=== PATIENT | female | born 1945 | race Caucasian/White ===

== ENCOUNTER → 2018-10-04 | Outpatient (CLI) | payer MEDICARE, OTHER, SELFPAY ==
[2018-10-04 15:32] VITALS: BMI 39.7
[2018-10-05 00:17] LABS: Absolute Lymphocyte Count 4.97 X10^3/ul (0.83-4.51); Absolute Neutrophil Count 4.3 X10^3/uL (2.0-7.7); Basophil# 0.05 X10^3/uL; Basophil% 0.5 % (0-1); Eosinophils% 0.9 % (0-5); Hematocrit 41.5 % (37-47); Hemoglobin 13.2 g/dl (12.0-15.0); Lymphocyte # 4.97 X10^3/ul (4.0); Lymphocyte % 47.2 % (19-41); Mean Corp Hgb Conc 31.8 g/gl (32-36); Mean Corpuscular Hgb 28.9 pg (27.0-32.0); Mean Corpuscular Volume 90.8 fL (81-99); Mean Platelet Vol. 12.4 fl (6.2-12.0); Monocyte# 1.08 X10^3/uL; Monocyte% 10.2 % (0-10); Neutrophil # 4.32 X10^3/uL (2.7-7.7); Platelet Count 246 K/mm3 (150-450); RBC Distribution Width CV 13.9 % (11.6-14.6); RBC Distribution Width SD 46.1 fl (35.1-43.9); Red Blood Count 4.57 M/mm3 (4.2-5.4); White Blood Count 10.5 K/mm3 (4.4-11.0)
[2018-10-05 00:26] LABS: POSITIVE COUNT NO; POSITIVE DIFFERENTIAL NO; POSITIVE MORPHOLOGY NO
[2018-10-05 00:39] LABS: ALB/GLOB Ratio 1.1 RATIO (0.9-2.4); AST(SGOT) 25 U/L (15-37); Alanine Aminotransfer ALT/SGPT 26 U/L (13-56); Albumin, Serum 3.9 g/dL (3.2-5.0); Alkaline Phosphatase 92 U/L (45-117); Anion Gap 6 (5-15); BUN 17 mg/dL (7-18); BUN/Creat Ratio 17.9 RATIO (10-20); Calcium,Total 8.6 mg/dL (8.5-10.1); Chloride 107 mmol/L (98-107); Cholesterol 231 mg/dL (200); Creatinine, Serum 0.95 mg/dL (0.55-1.02); EST Glomerular Filtration Rate 61 mL/min (>60); Est Glom Filt Rate - Afr Amer 74 mL/min (>60); Globulin 3.5 g/dL (2.2-4.2); Glucose 98 mg/dL (74-106); High Density Lipoprotein 50 mg/dL; Protein, Total 7.4 g/dL (6.4-8.2); Sodium Level 138 mmol/L (136-145); Triglycerides 135 mg/dL; Very Low Density Lipoprotein 27 mg/dL (5-40)
== END | disposition home or self-care (01) ==
PROVIDERS: Referring Provider Nurse Practitioner; Visit Provider Nurse Practitioner
DX: I10 Essential (primary) hypertension (principal)
CPT/HCPCS: 80053; 80061; 85025

== ENCOUNTER → 2020-05-12 | Outpatient (CLI) | payer MEDICARE, OTHER, SELFPAY ==
[2020-05-12 14:55] VITALS: BMI 40.6
[2020-05-12 22:25] LABS: Absolute Lymphocyte Count 6.01 X10^3/uL (0.83-4.51); Absolute Neutrophil Count 4.4 X10^3/uL (2.0-7.7); Basophil# 0.08 X10^3/uL; Basophil% 0.7 % (0-1); Eosinophil# 0.18 X10^3/uL; Eosinophils% 1.6 % (0-5); Hematocrit 44.3 % (37-47); Hemoglobin 13.6 g/dL (12.0-15.0); Lymphocyte # 6.01 X10^3/ul (4.0); Lymphocyte % 52.4 % (19-41); Mean Corp Hgb Conc 30.7 g/dL (32-36); Mean Corpuscular Hgb 28.9 pg (27.0-32.0); Mean Corpuscular Volume 94.3 fL (81-99); Mean Platelet Vol. 12.5 fl (6.2-12.0); Monocyte# 0.76 X10^3/uL; Monocyte% 6.6 % (0-10); NRBC Flagged by Analyzer 0 % (0-5); Neutrophil # 4.44 X10^3/uL (2.7-7.7); Neutrophil % 38.6 % (47-70); POSITIVE DIFFERENTIAL YES; Platelet Count 210 K/mm3 (150-450); RBC Distribution Width CV 13.4 % (11.6-14.6); RBC Distribution Width SD 46.8 fl (35.1-43.9); White Blood Count 11.5 K/mm3 (4.4-11.0)
[2020-05-12 22:30] LABS: Differential Indicated SCAN CRITERIA MET
[2020-05-12 22:32] LABS: AST(SGOT) 23 U/L (15-37); Alanine Aminotransfer ALT/SGPT 35 U/L (13-56); Alkaline Phosphatase 108 U/L (45-117); Anion Gap 7 (5-15); BUN 17 mg/dL (7-18); BUN/Creat Ratio 17.7 RATIO (10-20); Calcium,Total 9.1 mg/dL (8.5-10.1); Chloride 107 mmol/L (98-107); Cholesterol 258 mg/dL (200); Creatinine, Serum 0.96 mg/dL (0.55-1.02); EST Glomerular Filtration Rate 60 mL/min (>60); Est Glom Filt Rate - Afr Amer 72 mL/min (>60); Globulin 3.9 g/dL (2.2-4.2); Glucose 89 mg/dL (74-106); High Density Lipoprotein 52 mg/dL; Potassium 3.9 mmol/L (3.5-5.1); Protein, Total 7.9 g/dL (6.4-8.2); Sodium Level 139 mmol/L (136-145); Thyroid Stim Hormone (TSH) 4.32 uIU/mL (0.358-3.74); Triglycerides 135 mg/dL; Very Low Density Lipoprotein 27 mg/dL (5-40)
[2020-05-12 23:06] LABS: Differential Comment SCANNED
== END | disposition home or self-care (01) ==
PROVIDERS: Referring Provider Nurse Practitioner; Visit Provider Nurse Practitioner
DX: I10 Essential (primary) hypertension (principal); K21.9 Gastro-esophageal reflux disease without esophagitis
CPT/HCPCS: 80053; 80061; 84443; 85025

== ENCOUNTER → 2020-06-30 | Outpatient (CLI) | payer MEDICARE, OTHER, SELFPAY ==
[2020-06-30 15:09] VITALS: BMI 40.4
[2020-06-30 22:30] LABS: Thyroid Stim Hormone (TSH) 0.11 uIU/mL (0.358-3.74)
== END | disposition home or self-care (01) ==
PROVIDERS: Visit Provider Nurse Practitioner
DX: R60.0 Localized edema (principal)
CPT/HCPCS: 84443

== ENCOUNTER → 2021-02-01 | Outpatient (CLI) | payer MEDICARE, OTHER, SELFPAY | END | disposition home or self-care (01) | PROVIDERS: Visit Provider Nurse Practitioner | DX: R50.9 Fever, unspecified (principal) | CPT/HCPCS: 87086 ==

== ENCOUNTER → 2021-02-22 | Outpatient (CLI) | payer MEDICARE, OTHER, SELFPAY ==
[2021-02-22 21:19] LABS: Basophil# 0.08 X10^3/uL; Basophil% 0.8 % (0-1); Eosinophil# 0.09 X10^3/uL; Eosinophils% 0.9 % (0-5); Hematocrit 41.4 % (37-47); Hemoglobin 12.9 g/dL (12.0-15.0); Lymphocyte % 49.1 % (19-41); Mean Corp Hgb Conc 31.2 g/dL (32-36); Mean Corpuscular Hgb 30.1 pg (27.0-32.0); Mean Corpuscular Volume 96.5 fL (81-99); Mean Platelet Vol. 13.1 fl (6.2-12.0); Monocyte# 1.12 X10^3/uL; Monocyte% 10.8 % (0-10); NRBC Flagged by Analyzer 0 % (0-5); Neutrophil # 3.98 X10^3/uL (2.7-7.7); Neutrophil % 38.2 % (47-70); POSITIVE DIFFERENTIAL YES; POSITIVE MORPHOLOGY YES; Platelet Count 245 K/mm3 (150-450); RBC Distribution Width CV 13.6 % (11.6-14.6); RBC Distribution Width SD 48.4 fl (35.1-43.9); Red Blood Count 4.29 M/mm3 (4.2-5.4); White Blood Count 10.4 K/mm3 (4.4-11.0)
[2021-02-22 21:23] LABS: Differential Indicated SCAN CRITERIA MET
[2021-02-22 21:30] LABS: ALB/GLOB Ratio 0.9 RATIO (0.9-2.4); AST(SGOT) 98 U/L (15-37); Alanine Aminotransfer ALT/SGPT 145 U/L (13-56); Albumin, Serum 3.5 g/dL (3.2-5.0); Alkaline Phosphatase 179 U/L (45-117); Anion Gap 5 (5-15); BUN 11 mg/dL (7-18); BUN/Creat Ratio 11.6 RATIO (10-20); Calcium,Total 9.1 mg/dL (8.5-10.1); Chloride 109 mmol/L (98-107); Creatinine, Serum 0.95 mg/dL (0.55-1.02); EST Glomerular Filtration Rate 61 mL/min (>60); Est Glom Filt Rate - Afr Amer 74 mL/min (>60); Globulin 3.9 g/dL (2.2-4.2); Glucose 119 mg/dL (74-106); Potassium 4.3 mmol/L (3.5-5.1); Protein, Total 7.4 g/dL (6.4-8.2); Sodium Level 141 mmol/L (136-145)
[2021-02-22 21:51] LABS: Differential Comment SCANNED
== END | disposition home or self-care (01) ==
PROVIDERS: PCP Nurse Practitioner; Visit Provider Nurse Practitioner
DX: I10 Essential (primary) hypertension (principal); K21.9 Gastro-esophageal reflux disease without esophagitis; R74.8 Abnormal levels of other serum enzymes
CPT/HCPCS: 80053; 85025

== ENCOUNTER → 2021-03-30 | Outpatient (CLI) | payer MEDICARE, OTHER, SELFPAY ==
[2021-03-30 22:48] LABS: ALB/GLOB Ratio 1.1 RATIO (0.9-2.4); AST(SGOT) 23 U/L (15-37); Alanine Aminotransfer ALT/SGPT 32 U/L (13-56); Alkaline Phosphatase 94 U/L (45-117); Anion Gap 7 (5-15); BUN 12 mg/dL (7-18); BUN/Creat Ratio 12.4 RATIO (10-20); Calcium,Total 9.1 mg/dL (8.5-10.1); Chloride 104 mmol/L (98-107); Creatinine, Serum 0.97 mg/dL (0.55-1.02); EST Glomerular Filtration Rate 59 mL/min (>60); Est Glom Filt Rate - Afr Amer 72 mL/min (>60); Globulin 3.8 g/dL (2.2-4.2); Glucose 94 mg/dL (74-106); Potassium 3.7 mmol/L (3.5-5.1); Protein, Total 7.8 g/dL (6.4-8.2); Sodium Level 140 mmol/L (136-145)
[2021-04-02 12:09] LABS: Vitamin D 1,25-Dihydroxy 44.5 pg/mL (19.9-79.3)
[2021-04-02 13:09] LABS: ANTINUCLEAR ANTIBODIES DIRECT Negative (Negative)
== END | disposition home or self-care (01) ==
PROVIDERS: Visit Provider Nurse Practitioner
DX: R74.8 Abnormal levels of other serum enzymes (principal); M19.90 Unspecified osteoarthritis, unspecified site; E55.9 Vitamin D deficiency, unspecified
CPT/HCPCS: 80053; 82652; 86038; 86225; 86235

== ENCOUNTER 2021-06-18 14:26 | Outpatient (CLI) | payer MEDICARE, OTHER, SELFPAY ==
[2021-06-18 22:23] LABS: Absolute Lymphocyte Count 7.06 X10^3/uL (0.83-4.51); Absolute Neutrophil Count 4.7 X10^3/uL (2.0-7.7); Basophil# 0.09 X10^3/uL; Basophil% 0.7 % (0-1); Eosinophil# 0.13 X10^3/uL; Hematocrit 42.1 % (37-47); Hemoglobin 13.8 g/dL (12.0-15.0); Lymphocyte # 7.06 X10^3/ul (0.83-4.51); Lymphocyte % 55.2 % (19-41); Mean Corp Hgb Conc 32.8 g/dL (32-36); Mean Corpuscular Hgb 30.1 pg (27.0-32.0); Mean Corpuscular Volume 91.7 fL (81-99); Mean Platelet Vol. 12.5 fl (6.2-12.0); Monocyte# 0.79 X10^3/uL; Monocyte% 6.2 % (0-10); NRBC Flagged by Analyzer 0 % (0-5); Neutrophil # 4.69 X10^3/uL (2.7-7.7); Neutrophil % 36.7 % (47-70); POSITIVE DIFFERENTIAL YES; Platelet Count 237 K/mm3 (150-450); RBC Distribution Width CV 13.2 % (11.6-14.6); RBC Distribution Width SD 45.1 fl (35.1-43.9); Red Blood Count 4.59 M/mm3 (4.2-5.4); White Blood Count 12.8 K/mm3 (4.4-11.0)
[2021-06-18 22:32] LABS: Differential Indicated SCAN CRITERIA MET
[2021-06-18 22:45] LABS: ALB/GLOB Ratio 1.1 RATIO (0.9-2.4); AST(SGOT) 24 U/L (15-37); Alanine Aminotransfer ALT/SGPT 62 U/L (13-56); Albumin, Serum 4.1 g/dL (3.2-5.0); Alkaline Phosphatase 96 U/L (45-117); Anion Gap 6 (5-15); BUN 14 mg/dL (7-18); BUN/Creat Ratio 15.5 RATIO (10-20); CRP, High Sensitivity Cardiac 1.69 mg/L; Calcium,Total 9.1 mg/dL (8.5-10.1); Chloride 108 mmol/L (98-107); Cholesterol 258 mg/dL (200); EST Glomerular Filtration Rate 64 mL/min (>60); Est Glom Filt Rate - Afr Amer 78 mL/min (>60); Globulin 3.8 g/dL (2.2-4.2); Glucose 95 mg/dL (74-106); High Density Lipoprotein 54 mg/dL; Potassium 4.1 mmol/L (3.5-5.1); Protein, Total 7.9 g/dL (6.4-8.2); Sodium Level 138 mmol/L (136-145); Thyroid Stim Hormone (TSH) 5.12 uIU/mL (0.358-3.74); Triglycerides 131 mg/dL; Very Low Density Lipoprotein 26 mg/dL (5-40)
[2021-06-18 23:01] LABS: Differential Comment SCANNED
== END 2021-06-18 23:59 | disposition home or self-care (01) ==
LOC: LABSPEC 08-31 14:26
PROVIDERS: Visit Provider Nurse Practitioner
DX: I10 Essential (primary) hypertension (principal)
CPT/HCPCS: 80053; 80061; 84443; 85025; 86141

== ENCOUNTER → 2022-01-10 | Outpatient (CLI) | payer MEDICARE, OTHER, SELFPAY | END | disposition home or self-care (01) | DX: N30.00 Acute cystitis without hematuria (principal) | CPT/HCPCS: 87077; 87086; 87088; 87186 ==

== ENCOUNTER → 2022-06-27 | Outpatient (CLI) | payer MEDICARE, OTHER, SELFPAY ==
[2022-06-27 21:39] LABS: Absolute Lymphocyte Count 5.39 X10^3/uL (0.83-4.51); Absolute Neutrophil Count 7.1 X10^3/uL (2.0-7.7); Basophil# 0.09 X10^3/uL; Basophil% 0.7 % (0-1); Eosinophil# 0.15 X10^3/uL; Eosinophils% 1.1 % (0-5); Hematocrit 42.8 % (37-47); Hemoglobin 13.5 g/dL (12.0-15.0); Lymphocyte # 5.39 X10^3/ul (0.83-4.51); Lymphocyte % 39.2 % (19-41); Mean Corp Hgb Conc 31.5 g/dL (32-36); Mean Corpuscular Hgb 30.3 pg (27.0-32.0); Monocyte# 1.04 X10^3/uL; Monocyte% 7.6 % (0-10); NRBC Flagged by Analyzer 0 % (0-5); Neutrophil # 7.05 X10^3/uL (2.7-7.7); Neutrophil % 51.3 % (47-70); POSITIVE DIFFERENTIAL YES; POSITIVE MORPHOLOGY YES; Platelet Count 206 K/mm3 (150-450); RBC Distribution Width CV 13.5 % (11.6-14.6); RBC Distribution Width SD 47.9 fl (35.1-43.9); Red Blood Count 4.46 M/mm3 (4.2-5.4); White Blood Count 13.7 K/mm3 (4.4-11.0)
[2022-06-27 21:50] LABS: Differential Indicated SCAN CRITERIA MET
[2022-06-27 22:38] LABS: Atypical Lymphocyte 1+ %; Differential Comment SCANNED
== END | disposition home or self-care (01) ==
PROVIDERS: Visit Provider Nurse Practitioner
DX: I10 Essential (primary) hypertension (principal); E03.9 Hypothyroidism, unspecified; K21.00 Gastro-esophageal reflux disease with esophagitis, without bleeding
CPT/HCPCS: 85025

== ENCOUNTER → 2023-07-11 | Outpatient (CLI) | payer MEDICARE, OTHER, SELFPAY ==
--- OUTSIDE RECORDS SUMMARY | 2023-07-11 20:44 | XMS RPT_ITS | CCD ---
Author Name Unknown Address [address] [place] [address] [address] [place] [address] Organization [facility] Care Team Providers Care Completion Engineer Name Role Phone Vital, Dora Primary Care Provider Allergies Allergy Classification Reported Allergen(s) Allergy Type Date of Onset Reaction(s) Facility (1 source) Acetaminophen Drug Allergy 8 Nausea And Vomiting [facility] (1 source) apple allergenic extract Drug Allergy 8 [facility] (1 source) Cat Hair Extract Drug Allergy 8 [facility] (4 sources) Ciprofloxacin Drug Allergy 8 Nausea And Vomiting, Nausea Only, GI Upset [facility] (1 source) Lisinopril Drug Allergy 9 Other (See Comments) [facility] (1 source) MITE EXTRACT Drug Allergy 8 [facility] (1 source) Sulfonamides (Antibiotic) Propensity to adverse reactions to drug 9 Nausea And Vomiting [facility] (1 source) tomato allergenic extract Drug Allergy 8 Hives [facility] (1 source) Peanut-Containing Drug Products Propensity to adverse reactions to drug 8 Hives [facility] (1 source) Cephalexin Drug Allergy 2 Intolerance [facility] (1 source) Sulfonamides (Antibiotic) Drug Allergy 9 GI Upset [facility] Medications Current Medications Medication Drug Class(es) Dates Sig (Normalized) Sig (Original) ursodiol 300 mg oral capsule (1 source) Bile Acid Start: 12-23-2021 End: 06-21-2022 take 1 capsule by mouth three times daily ursodiol (ACTIGALL) 300 mg capsule Take 1 capsule by mouth three times daily. 270 capsule 1 12/23/2021 06/21/2022 Active Completed/Discontinued Medications Medication Drug Class(es) Dates Sig (Normalized) Sig (Original) aluminum hydroxide 40 mg/ml / magnesium hydroxide 40 mg/ml / simethicone 4 mg/ml oral suspension (1 source) Start: 01-30-2021 End: 01-30-2021 aluminum & magnesium hydroxide-simeth icone (MAALOX) 200-200-20 MG/5ML suspension 30 mL amLODIPine 2.5 mg oral tablet (4 sources) Dihydropyridine Calcium Channel [place] take 1 tablet by mouth once daily amLODIPine (NORVASC) 2.5 mg tablet Take 2.5 mg by mouth once daily. 0 Active Problems Active Problems Problem Classification Problem Date Documented Da te Episodic/Chronic Esophageal disorders (1 source) Esophagitis; Translations: [Esophagitis] Episodic Essential hypertension (3 sources) Essential hypertension; Translations: [Essential (primary) hypertension] Onset: 02-06-2021 02-06-2021 Chronic Nonspecific chest pain (1 source) Chest pain; Translations: [Other chest pain] Episodic Other nutritional; endocrine; and metabolic disorders (1 source) Obese class II; Translations: [Obesity, unspecified] Onset: 2021 2021 Chronic Pancreatic disorders (not diabetes) (1 source) Gallstone acute pancreatitis; Translations: [Biliary acute pancreatitis without necrosis or infection] Onset: 2021 12-18-2021 Episodic Thyroid disorders (3 sources) Acquired hypothyroidism; Translations: [Hypothyroidism, unspecified] Onset: 02-06-2021 02-06-2021 Chronic Past or Other Problems Problem Classification Problem Date Documented Date Episodic/Chronic Abdominal pain (3 sources) Epigastric pain; Translations: [Epigastric pain] Onset: 02-06-2021 02-06-2021 Episodic Biliary tract disease (6 sources) Common bile duct calculus; Translations: [Calculus of bile duct without cholangitis or cholecystitis without obstruction] Onset: 02-06-2021 02-06-2021 Episodic Other liver diseases (3 sources) Enzyme level - finding; Translations: [Transaminitis] Onset: 02-06-2021 02-06-2021 Episodic Urinary tract infections (3 sources) Acute urinary tract infection; Translations: [Urinary tract infection, site not specified] Onset: 02-06-2021 02-06-2021 Episodic Results Test Name Value Interpretation Reference Range Facil ity Vital Signs Date Time Vital Sign Value Performing Clinician Faci lity 01-30-2021 16:28-0400 Diastolic blood pressure 102 mm[Hg] Kameron Solomon MD Work Phone: [facility] Work Phone: 01-30-2021 16:28-0400 Heart rate 78 /min Kameron Solomon MD Work Phone: [facility] Work Phone: 01-30-2021 16:28-0400 Respiratory rate 22 /min Kameron Solomon MD Work Phone: [facility] Work Phone: 01-30-2021 16:28-0400 SaO2% (BldA) [Mass fraction] 85 % Kameron Solomon MD Work Phone: [facility] Work Phone: 01-30-2021 16:28-0400 Systolic blood pressure 128 mm[Hg] Kameron Solomon MD Work Phone: [facility] Work Phone: 01-30-2021 11:49-0400 Body height 149.9 cm Kameron Solomon MD Work Phone: [facility] Work Phone: 01-30-2021 11:49-0400 Body mass index (BMI) [Ratio] 34.34 kg/m2 Kameron Solomon MD Work Phone: [facility] Work Phone: 01-30-2021 11:49-0400 Body temperature 98.91 [degF] Kameron Solomon MD Work Phone: [facility] Work Phone: 01-30-2021 11:49-0400 Body weight 77.11 kg Kameron Solomon MD Work Phone: [facility] Work Phone: Encounters Encounter Date Encounter Type Care Provider Facility Start: 07-27-2022 Telephone encounter Kinsey cruz APRN.[employer]UAL[employer]ATION ARCHITECT Work Phone: NOC Procedures Date Procedure Procedure Detail Performing Clinician Start: 02-09-2021 Antibody screen Plan of Treatment Date Care Activity Detail Author Start: 12-23-2024 DIABETES SCREEN DIABETES SCREEN [facility] Start: 02-11-2024 DIABETES SCREEN DIABETES SCREEN [facility] Start: 02-03-2022 Influenza vaccination [facility] Start: 06-05-2021 ADVANCE DIRECTIVE DISCUSSION ADVANCE DIRECTIVE DISCUSSION [facility] Start: 02-03-2021 COVID-19 VACCINE (3 - Booster for Pfizer series) COVID-19 VACCINE (3 - Booster for Pfizer series) [facility] Start: 02-03-2021 Influenza vaccination Flu vaccine (#1) [facility] Work Phone: Start: 12-16-2008 Pneumococcal 65+ years Vaccine (1 of 1 - PPSV23) Pneumococcal 65+ years Vaccine (1 of 1 - PPSV23) [facility] Work Phone: Start: 12-16-2008 PNEUMOCOCCAL: 65+ (1 - PCV) PNEUMOCOCCAL: 65+ (1 - PCV) [facility] Start: 12-16-1998 Screening for osteoporosis DEXA (modify frequency per FRAX score) [facility] Work Phone: Start: 12-16-1993 Shingles Vaccine (1 of 2) Shingles Vaccine (1 of 2) [facility] Work Phone: Start: 12-16-1993 SHINGRIX VACCINE (1 of 2) SHINGRIX VACCINE (1 of 2) [facility] Start: 12-16-1962 DTaP/Tdap/Td vaccine (1 - Tdap) DTaP/Tdap/Td vaccine (1 - Tdap) [facility] Work Phone: Start: 12-16-1962 Urine microalbumin profile DTAP,TDAP,TD (1 - Tdap) [facility] Start: 12-16-1961 ANNUAL PCP TEAM CHRONIC DISEASE VISIT ANNUAL PCP TEAM CHRONIC DISEASE VISIT [facility] Start: 12-16-1961 BP CONTROLLED (<130/80) BP CONTROLLED (<130/80) [facility] Start: 1955 Adult depression screening assessment DEPRESSION SCREENING [facility] Start: 1955 COVID-19 Vaccine (1) COVID-19 Vaccine (1) [facility] Work Phone: Start: 1943 Hepatitis C screening Hepatitis C screen [facility] Work Phone: EKG 12 Lead [facility] Work Phone: Payers Date Payer Category Payer Unknown MMO MMO MEDICARE SUPPLEMENT [id number] 2019-Present [phone] [address] [place] [address] Indemnity [id number] 2008 Medicare MEDICARE MEDICAR E A AND B [id number] 2008-Present [phone] [address] [address] [place] [address] Medicare [id number] Social History Date Type Detail Facility Start: 01-30-2021 End: 02-05-2021 Tobacco smoking status NHIS Never smoker [facility] Start: 01-30-2021 End: 02-05-2021 Tobacco use and exposure Never used [facility] Start: 01-30-2021 Alcohol intake Lifetime non-d robe (finding) [employer] Work Phone: Start: 01-30-2021 End: 12-19-2021 History SDOH Alcohol Frequency 1 [employer] Work Phone: Start: 1945 Sex Assigned At Not on file [facility] Work Phone: Start: 10-16-2021 End: 12-22-2021 Exposure to SARS-CoV-2 (event) Not sure [facility] Start: 02-10-2021 End: 12-22-2021 Alcohol intake Ex-drinker (finding) [facility] Start: 12-19-2021 History SDOH Financial 5 [facility] Start: 12-19-2021 History SDOH Transpo rt Med 2 [facility] Clinical Notes 01-30-2021 to 12-23-2021 Note Date & Type Note Facility 12-23-2021 Note HNO ID: [id number] Author: Taylor Artis RN Service: Care Management Author Type: Registered Nurse Type: Care Mgt Initial Assessment Filed: 12/23/2021 2:43 PM Note Text: CARE MANAGEMENT: ASSESSMENT AND DISCHARGE PLAN SERVICE DATE: December 23, 2021 SERVICE TIME: 2:36 PM PRIMARY CARE PHYSICIAN: Kinsey Vital APRN.[facility] Primary Contact: Extended Emergency Contact Information Primary Emergency Contact: VIKI ANAYA Address: [address] [place] [id number] Relation: Daughter Secondary Emergency Contact: Derick Wild Mobile Relation: Son ADMISSION STATUS: Inpatient Insurance Provider: MEDICARE A AND B NEEDS PRIOR TO DISCHARGE Needs Prior to Discharge: To Be Determined POTENTIAL TRANSITION PLANS Home Based on clinical judgement, Care Management will address the following needs: Medical Patient's perception of need for this admission: less pain ADVANCE DIRECTIVES Current Advance Directive: Health Care Power of Pain Medicine Physician In Chart: No MS/BEHAVIOR Baseline Mental Status Prior to this Illness what was the patient's Baseline Mental Status?: Alert AND Oriented Prior to this illness, has anyone described the patient having any of the following behaviors?: Not Applicable Relationship of the informant to the patient:: Self READMISSION Last Discharge Date: 12/21/21 Is this Within the Past 30 days? From what level of care did patient present?: Home Last discharge within 30 days: No PATIENT SCREEN Patient/Transport Nurse Stated Goals: To have reduction in pain;To have reduction in symptoms;To improve my functional status;To return home to life as it was Under the care of a PCP?: Yes, External Provider Provider Name: Kinsey Horton Last Known Visit: last month Does the patient have transportation upon discharge?: Yes Situation: family Use of any community resources?: No Does the patient have a stable and supportive living arrangement and home setting?: Yes Situation: lives at home alone one level home Are there any potential risks or gaps identified by risk/functional/fall,etc. scores in the EMR?: No Any potential risks related to substance abuse and/or behavioral health?: No Based on clinical judgement, Care Management will address the following needs: Medical CAREGIVER ASSESSMENT Caregiver is ready, willing and able to meet the patient's needs as recommended by the inter-professional team:: No Patient's transition needs and plan for meeting these needs: tbd MEDICAL Medical Needs: Two or more chronic diseases;Obesity;Durable Medical Equipment Health Issues Impacting Discharge Plan: Newly diagnosed Newly Diagnosed: choledocholithiasis Medication Adherance I am convinced of the importance of my prescription medication: 0 - Agree Completely I worry that my prescription medication will do more harm than good to me : 0 - Disagree Completely I feel financially burdened by my [id number] expenses for my prescription medication:: 0 - Disagree Completely Risk Score: 0 Patient is categorized as: Low risk < 2 No medical discharge barriers identified at this time. No social discharge barriers identified at this time. No behavioral/cognitive discharge barriers identified at this time. No functional discharge barriers identified at this time. FREEDOM OF CHOICE EXPLAINED: Are you interested in bedside delivery of your medications? No ASSESSMENT AND PLAN: Spoke to patient at bedside. Pt is from home alone, daughter lives next door, not active with any agencies, +PCP, +DME, +PCP (BHARGAVI Donald) pt is independent [employer]. Pt had ERCP yesterday 12/22. Anticipate home at discharge. Family to transport at d/c. to follow clinical progress. SIGNATURE: Taylor Artis RN PATIENT NAME: Lizzy Wild DATE: December 23, 2021 TIME: 2:36 PM CONTACT #: [id number] [facility] 12-23-2021 Note HNO ID: [id number] Author: Vane Lau DO Service: General Surgery Author Type: Resident Type: Progress Notes Filed: 12/23/2021 7:29 AM Note Text: -- Attestation signed by Lainey Perez MD at 12/23/2021 4:45 PM I saw and evaluated the patient. Discussed with the resident and agree with resident's findings and plan as documented in the resident's note. No c/o No pain or nausea LFTs- higher: T bili 2.0 WBC 9.3 A/P choledocholithiasis- S/p ERCP with stone removal on 12-22-21 Cont diet as tolerated OK for discharge Follow LFTs as outpatient- should normalize without intervention H Naveed Perez MD -- MEDICAL STUDENT Elect[facility] General Surgery ([facility]) Progress Note This note was generated by a medical student working under the supervision of a resident and attending physician. When co-signed, the physical exam findings, assessment, and plan as written below are are considered accurate. SERVICE DATE: 12/23/2021 [facility] Surgery (Green Surgery) Service Pager: For questions or concerns Mon-Fri 6a-5p please page [phone]. After 5pm and on Weekends and Holidays, please page [phone] if in ICU or [phone] if on RNF. SUBJECTIVE: Pt doing well this morning after the procedure Complains of a mildly sore throat but otherwise feels much better No N/V/D Had a BM and passing flatus Tolerating clears Ambulating w/o assistance . Denies fevers, chills, CP, SOB, headache, cough, muscle weakness, numbness, urinary difficulty, or any other complaints this AM. Tolerating diet DIET LIQUID Nausea No Emesis No Flatus Yes Bowel movement Yes Pain Controlled Yes Ambulating Yes OBJECTIVE: Vitals: Temp (24hrs), Av.3 ?C (97.4 ?F), Min:36 ?C (96.8 ?F), Max:36.8 ?C (98.2 ?F) BP 149/67 Pulse 60 Temp 36.7 ?C (98.1 ?F) (Oral) Resp 18 Ht 149.9 cm (4' 11 ) Wt 87 kg (191 lb 12.8 oz) SpO2 96% BMI 38.74 kg/m? O2 Therapy: Room Air IANDO: Date 12/22/21 0700 - 12/23/21 0659 12/23/21 07 - 12/24/21 0659 Shift 1517-3854 2539-9135 2435-6355 24 Hour Total 2249-6337 2350-9423 8803-7782 24 Hour Total INTAKE PO 240 240 PO 240 240 IV 500 500 Volume (mL) (lactated ringers iv infusion) 500 500 Shift Total 500 240 740 OUTPUT Urine 200 200 Void (ml) 200 200 Urine Not Saved. 1 x 1 x 2 x Shift Total 200 200 Weight (kg) 87 87 87 87 87 87 87 87 MEDICATIONS Current Facility-Administered Medications Medication Dose Route Frequency - lactated ringers iv infusion 75 mL/hr INTRAVENOUS CONTINUOUS - fentaNYL 50 mcg/mL 25 mcg injection (SUBLIMAZE) 25 mcg INTRAVENOUS q 5 MIN PRN - ondansetron (PF) 4 mg injection (ZOFRAN) 4 mg INTRAVENOUS PRN - metoprolol succinate ER 50 mg tab(s) (TOPROL XL) 50 mg ORAL DAILY - amLODIPine 2.5 mg tab(s) (NORVASC) 2.5 mg ORAL DAILY - pantoprazole DR 40 mg tab(s) (PROTONIX) 40 mg ORAL BID AC (06/1599) - polyethylene glycol 3350 17 g packet (MIRALAX, GLYCOLAX) 17 g ORAL DAILY PRN - sodium chloride 0.9 % (flush) 3-5 mL (BD POSIFLUSH) 3-5 mL INTRAVENOUS q 12 H - NaCl 0.9% iv flush bag 20 mL INTRAVENOUS PRN - enoxaparin 40 mg injection (LOVENOX) 40 mg SUBCUTANEOUS DAILY - acetaminophen 650 mg tab(s) (TYLENOL) 650 mg ORAL q 6 H - levothyroxine 100 mcg tab(s) (SYNTHROID) 100 mcg ORAL DAILY (6 AM) Labs: Recent Labs 12/23/21 0412 12/22/21 0625 NA 142 140 K 3.1* 3.0* CHLOR 105 103 CO2 22 19* BUN 5* 6* CREAT 0.68 0.65 GLUC 90 76 ANION 15 18 CA 9.2 9.1 ALB 3.6* 4.1 AST 164* 37* ALT 151* 111* ALKPHOS 229* 177* TBILI 2.0* 0.6 WBC 9.30 8.93 HB 13.9 14.2 HCT 43.1 43.6 PLT 203 206 Exam: GENERAL: resting comfortably, in no acute distress HEENT: normocephalic, atraumatic, EOMI NECK: trachea midline, no JVD LUNGS: Unlabored breathing, equal chest rise bilaterally CARDIAC: Regular rate and rhythm as above ABDOMEN: Soft, non-tender, non-distended, no masses or organomegaly EXTREMITIES: FIELDS, No deformities, No edema SKIN: Skin color, texture, turgor normal, No rashes or lesions NEURO: AANDOx3, CN II-XII grossly intact PSYCH: normal mood and affect ASSESSMENT AND PLAN: Active Hospital Problems Diagnosis Date Noted - Choledocholithiasis 02/06/2021 Assessment: 76 year old female?with a past medical history of hypothyroidism and hypertension, and past surgical history of appendectomy, cholecystectomy, total abdominal hysterectomy, oophorectomy, ventral and inguinal hernia repairs with mesh presents as a direct admission for choledocholithiasis seen on MRCP. Underwent ERCP with stone removal, but not stent placement on 12/22/21. Hospital Course: 12/21: MRI shows CBD 12mm stone indicating choledocholithiasis 12/22: underwent ERCP with sphincterotomy with removal of stones, no stent Plan: POD1 SP ERCP with sphincteroto (more content not included)... [facility] 12-22-2021 Note HNO ID: [id number] Author: Jamari Boles MD Service: General Surgery Author Type: Resident Type: Progress Notes Filed: 12/22/2021 6:26 PM Note Text: -- Attestation signed by Aimee Santacruz MD at 12/23/2021 2:10 PM I saw and evaluated the patient. Discussed with the resident and agree with resident's findings and plan as documented in the resident's note. December 23, 2021 Aimee Santacruz MD 2:10 PM Plan of care discussed with: Provider, RN, Patient. -- [facility] ([facility]) Progress Note SERVICE DATE: December 22, 2021 Elect[facility] General Surgery ([facility]) Service Pager: For questions or concerns Mon-Mon 6a-5p please page [phone]. After 5pm and on Weekends and Holidays, please page [phone] if in ICU or [phone] if on RNF. Subjective SUBJECTIVE: Complains of persistent epigastric pain. Tolerating diet DIET LIQUID Nausea No Emesis No Flatus Yes Bowel movement Yes Pain Controlled Yes Ambulating Yes Objective OBJECTIVE: Vitals: Temp (24hrs), Av.4 ?C (97.5 ?F), Min:36 ?C (96.8 ?F), Max:37.1 ?C (98.8 ?F) BP 142/76 Pulse 91 Temp 36.4 ?C (97.6 ?F) (Axillary) Resp 20 Ht 149.9 cm (4' 11 ) Wt 87 kg (191 lb 12.8 oz) SpO2 95% BMI 38.74 kg/m? O2 Therapy: Room Air IANDO: Date 12/21/21 1500 - 12/22/21 0659 12/22/21 0700 - 12/23/21 0659 Shift 3683-9743 3643-6220 24 Hour Total 3247-7615 5971-1980 8760-7217 24 Hour Total INTAKE IV 500 500 Volume (mL) (lactated ringers iv infusion) 500 500 Shift Total 500 500 OUTPUT Urine 200 200 Void (ml) 200 200 Shift Total 200 200 Weight (kg) 87 87 87 87 87 87 MEDICATIONS Current Facility-Administered Medications Medication Dose Route Frequency - lactated ringers iv infusion 125 mL/hr INTRAVENOUS CONTINUOUS - fentaNYL 50 mcg/mL 25 mcg injection (SUBLIMAZE) 25 mcg INTRAVENOUS q 5 MIN PRN - ondansetron (PF) 4 mg injection (ZOFRAN) 4 mg INTRAVENOUS PRN - metoprolol succinate ER 50 mg tab(s) (TOPROL XL) 50 mg ORAL DAILY - amLODIPine 2.5 mg tab(s) (NORVASC) 2.5 mg ORAL DAILY - pantoprazole DR 40 mg tab(s) (PROTONIX) 40 mg ORAL BID AC (0600/1600) - polyethylene glycol 3350 17 g packet (MIRALAX, GLYCOLAX) 17 g ORAL DAILY PRN - sodium chloride 0.9 % (flush) 3-5 mL (BD POSIFLUSH) 3-5 mL INTRAVENOUS q 12 H - NaCl 0.9% iv flush bag 20 mL INTRAVENOUS PRN - NaCl 0.9% iv infusion 100 mL/hr INTRAVENOUS CONTINUOUS - enoxaparin 40 mg injection (LOVENOX) 40 mg SUBCUTANEOUS DAILY - acetaminophen 650 mg tab(s) (TYLENOL) 650 mg ORAL q 6 H - levothyroxine 100 mcg tab(s) (SYNTHROID) 100 mcg ORAL DAILY (6 AM) Labs: Recent Labs 12/22/21 0625 12/21/21 0835 NA 140 141 K 3.0* 3.9 CHLOR 103 108* CO2 19* 19* BUN 6* 8 CREAT 0.65 0.71 GLUC 76 85 ANION 18 14 CA 9.1 9.2 ALB 4.1 3.8* AST 37* 45* ALT 111* 129* ALKPHOS 177* 180* TBILI 0.6 0.5 WBC 8.93 7.81 HB 14.2 13.1 HCT 43.6 40.4 PLT 206 206 Physical Exam: GENERAL: resting comfortably, in no acute distress HEENT: normocephalic, atraumatic, EOMI NECK: trachea midline, no JVD LUNGS: unlabored breathing, equal chest rise bilaterally CARDIAC: regular rate, warm and well perfused extremities ABDOMEN: soft, tender in epigastric region, non-distended, no rebound or guarding EXTREMITIES: FIELDS, no deformities, no edema SKIN: skin color, texture, turgor normal, no rashes or lesions NEURO: AANDOx3, CN II-XII grossly intact PSYCH: normal mood and affect ASSESSMENT AND PLAN: Assessment Active Hospital Problems Diagnosis Date Noted - Choledocholithiasis 02/06/2021 Assessment: 76 year old female?with a past medical history of hypothyroidism and hypertension, and past surgical history of appendectomy, cholecystectomy, total abdominal hysterectomy, oophorectomy, ventral and inguinal hernia repairs with mesh presents as a direct admission for choledocholithiasis seen on MRCP. Hospital Course/Operations/Procedures: 12/22/2021 Procedure(s): ERCP WITH REMOVAL STONE ERCP WITH SPHINCTEROTOMY INPATIENT ATTENDING: Dr. Lainey Perez MD, Elective High-Risk Geriatric Patient Vulnerabilities: Patient is NOT high risk based on evaluation and assessment Plan: - ERCP with Dr. Perez today for sphincterotomy - 3-4 yellow cholesterol stones removed - Diet: DIET LIQUID, will advance as tolerated - discharge tomorrow if stable - Team members: Surgeon, Resident/FERCHO and Nurse - Recommendations: N/A Geriatrics, cognition/delirium: N/A Palliative care and hospice: N/A Speech AND Nutrition recommendations: N/A Pharmacy Med recommendations: N/A - Anticipated discharge: tomorrow - Rehab AND therapy recommendations: Home Discussed with attending: Dr. Santacruz Follow up needs: none SIGNATURE: Jamari Boles MD PATIENT NAME: Lizzy Wild DATE: December 22, 2021 TIME: 6:18 (more content not included)... [facility] 12-22-2021 Note HNO ID: [id number] Author: Lukas Gonzalez RN Service: ? Author Type: Registered Nurse Type: Nursing Progress Note Filed: 12/22/2021 2:41 PM Note Text: 100 cc's LR infused in PACU [facility] 12-22-2021 Note HNO ID: [id number] Author: Lukas Gonzalez RN Service: ? Author Type: Registered Nurse Type: Nursing Progress Note Filed: 12/22/2021 2:19 PM Note Text: Kd RN and Derick RN cleaned pt of incont urine- [facility] 12-22-2021 Note HNO ID: [id number] Author: Meme Harding APRN.[facility] Service: Nursing Author Type: Nurse Applied Research Director Type: Anesthesia Procedure Notes Filed: 12/22/2021 12:59 PM Note Text: ANESTHESIOLOGY PROCEDURE NOTE PIV General Information Procedure Start Time/Medication Administration: 12/22/2021 12:42 PM Patient Location: OR Staffing Anesthesiologist: Thierno Bartlett DO Performed by: anesthesiologist Preparation Sterility Preparation: hand hygiene performed prior to procedure, surgical cap used, mask used, skin prep agent completely dried prior to procedure Site Prep: Chloraprep Procedure Details Indication: need for IV access Needle Size/Type: 22 gauge angiocath Orientation: Right Location: Forearm Imaging Guidance Used: No SIGNATURE: Meme Harding APRN.CRNA PATIENT NAME: Lizzy Wild DATE: December 22, 2021 TIME: 12:58 PM CSN: [id number] [facility] 12-22-2021 Note HNO ID: [id number] Author: Meme Harding APRN.GRINDER SET UP OPERATOR JIG Service: Nursing Author Type: Nurse Applied Research Director Type: Anesthesia Procedure Notes Filed: 12/22/2021 12:58 PM Note Text: ANESTHESIOLOGY PROCEDURE NOTE Airway General Information Procedure Start Time/Medication Administration: 12/22/2021 12:40 PM Patient location during procedure: OR Patient identity confirmed: arm band and patient Staffing Anesthesiologist: Thierno Bartlett DO GRINDER SET UP OPERATOR JIG: Meme Harding APRN.GRINDER SET UP OPERATOR JIG Performed by: MONTSE Indications and Patient Condition Preoxygenated: yes Patient position: sniffing Difficult Mask: No Indications for airway management: anesthesia and airway protection anesthesia circuit Method: modified rapid sequence Final Airway Details Final airway type: endotracheal airway Final Endotracheal Airway: ETT Cuffed: yes Successful intubation technique: direct laryngoscopy Devices used: intubating stylet Endotracheal tube insertion site: oral Blade: Graciela Blade size: #3 ETT size (mm): 7.0 Measured from: lips Measurement (cm): 20 Placement verified by: chest auscultation and capnometry Cormack-Lehane Classification: grade I - full view of glottis Number of attempts at approach: 1 Airway not difficult SIGNATURE: Meme Harding APRN.GRINDER SET UP OPERATOR JIG PATIENT NAME: Lizzy Wild DATE: December 22, 2021 TIME: 12:57 PM CSN: [id number] [facility] 12-22-2021 Note HNO ID: [id number] Author: Vane Lau DO Service: General Surgery Author Type: Resident Type: Progress Notes Filed: 12/22/2021 8:18 AM Note Text: -- Attestation signed by Lainey Perez MD at 12/22/2021 1:36 PM I saw and evaluated the patient. Discussed with the resident and agree with resident's findings and plan as documented in the resident's note. Lainey Perez MD -- MEDICAL STUDENT Elective General Surgery (Green Surgery) Progress Note This note was generated by a medical student working under the supervision of a resident and attending physician. When co-signed, the physical exam findings, assessment, and plan as written below are are considered accurate. SERVICE DATE: 12/22/2021 Elective General Surgery (Green Surgery) Service Pager: For questions or concerns Mon-Fri 6a-5p please page [phone]. After 5pm and on Weekends and Holidays, please page [phone] if in ICU or [phone] if on RNF. SUBJECTIVE: Patient was seen and examined this morning. Continues to have epigastric pain. She says that it sometimes radiates to her back. Denies any nausea/vomiting. Denies fevers, chills, CP, SOB, headache, cough, muscle weakness, numbness, urinary difficulty, or any other complaints this AM. Tolerating diet DIET NPO Nausea No Emesis No Flatus Yes Bowel movement Yes Pain Controlled Yes Ambulating Yes OBJECTIVE: Vitals: Temp (24hrs), Av.7 ?C (98.1 ?F), Min:36.3 ?C (97.3 ?F), Max:37.1 ?C (98.8 ?F) BP 144/64 Pulse (!) 59 Temp 36.3 ?C (97.3 ?F) (Oral) Resp 20 Ht 149.9 cm (4' 11 ) Wt 87 kg (191 lb 12.8 oz) SpO2 97% BMI 38.74 kg/m? O2 Therapy: Room Air IANDO: MEDICATIONS Current Facility-Administered Medications Medication Dose Route Frequency - metoprolol succinate ER 50 mg tab(s) (TOPROL XL) 50 mg ORAL DAILY - amLODIPine 2.5 mg tab(s) (NORVASC) 2.5 mg ORAL DAILY - pantoprazole DR 40 mg tab(s) (PROTONIX) 40 mg ORAL BID AC (0600/1600) - polyethylene glycol 3350 17 g packet (MIRALAX, GLYCOLAX) 17 g ORAL DAILY PRN - sodium chloride 0.9 % (flush) 3-5 mL (BD POSIFLUSH) 3-5 mL INTRAVENOUS q 12 H - NaCl 0.9% iv flush bag 20 mL INTRAVENOUS PRN - NaCl 0.9% iv infusion 100 mL/hr INTRAVENOUS CONTINUOUS - enoxaparin 40 mg injection (LOVENOX) 40 mg SUBCUTANEOUS DAILY - acetaminophen 650 mg tab(s) (TYLENOL) 650 mg ORAL q 6 H - levothyroxine 100 mcg tab(s) (SYNTHROID) 100 mcg ORAL DAILY (6 AM) Labs: Recent Labs 12/21/21 0835 12/20/21 0544 NA 141 144 K 3.9 3.7 CHLOR 108* 109* CO2 19* 18* BUN 8 10 CREAT 0.71 0.73 GLUC 85 67* ANION 14 17 CA 9.2 9.0 ALB 3.8* 3.6* AST 45* 69* ALT 129* 170* ALKPHOS 180* 193* TBILI 0.5 0.5 WBC 7.81 8.75 HB 13.1 12.5 HCT 40.4 38.5 PLT 206 200 Exam: GENERAL: resting comfortably, in no acute distress HEENT: normocephalic, atraumatic, EOMI NECK: trachea midline, no JVD LUNGS: Unlabored breathing, equal chest rise bilaterally CARDIAC: Regular rate and rhythm as above ABDOMEN: is soft tender to palpation in the epigastric region it is non-distended, no masses or organomegaly EXTREMITIES: FIELDS, No deformities, No edema SKIN: Skin color, texture, turgor normal, No rashes or lesions NEURO: AANDOx3, CN II-XII grossly intact PSYCH: normal mood and affect ASSESSMENT AND PLAN: Active Hospital Problems Diagnosis Date Noted - Choledocholithiasis 02/06/2021 Assessment: 76 year old female?with a past medical history of hypothyroidism and hypertension, and past surgical history of appendectomy, cholecystectomy, total abdominal hysterectomy, oophorectomy, ventral and inguinal hernia repairs with mesh presents as a direct admission for choledocholithiasis. Hospital Course: Plan: - Possible ERCP today 12/22 - continue rest of medical mgmt per primary - Diet: NPO - IVF: NS 100 mL/hr - Pain control: tylenol, oxy PRN - GI PPx: protonix - DVT PPx: LVX, SCDs - Home Medications: synthroid, metoprolol, amlodipine - Encourage ambulation, incentive spirometry - Discussed with resident: Dr Louis DO Follow up needs: TBD SIGNATURE: Oanh Eden MS4 PATIENT NAME: Lizzy Wild DATE: December 22, 2021 TIME: 5:30 AM Pager: see below Elective General Surgery (Green Surgery) Service Pager: For questions or concerns Mon-Fri 6a-5p please page [phone]. After 5pm and on Weekends and Holidays, please page [phone]. TEACHING PHYSICIAN NOTE OF PERSONAL INVOLVEMENT IN CARE: I have personally seen and examined the patient and performed the medical decision-making components. I have reviewed the medical student documentation and verified the findings in the note as written. Any additions or changes are noted in bold/italics. Signature: Vane Lau DO Date: 12/22/2021 Time: 8:18 AM [facility] 12-21-2021 Note HNO ID: [id number] Author: Inessa Zacarias APRN.[facility] Service: Gastroenterology Author Type: Nurse Specialist Type: Plan of Care Filed: 12/21/2021 3:09 PM Note Text: December 21, 2021 3:08 PM GI plan of care Spoke with Dr. Alvarez Salgado at [facility] and he can accept patient there for ERCP with stone removal. Likely will be transferred there later today. Notified LINDSEY Whaley and nursing staff ([facility]). Inessa Zacarias APRN.[facility] 12-20-2021 Note HNO ID: [id number] Author: KIMMIE Newsome Service: Care Management Author Type: Judicial Law Clerk Type: Care Mgt Progress Note Filed: 12/20/2021 3:29 PM Note Text: CARE MANAGEMENT PROGRESS NOTE SERVICE DATE: 12/20/2021 SERVICE TIME: 3:29 PM LOS: 3 days Needs Prior to Discharge: To Be Determined EMR reviewed and case discussed with primary RN. Pt continues to await bed at [facility] for ERCP. No bed available today due to high census. CM team will continue to follow/monitor for possible DC needs. SIGNATURE: Angélica Del Cid, TUBER MACHINE OPERATOR HELPER, STEAM HAMMER OPERATOR, CCM PATIENT NAME: Lizzy Wild DATE: December 20, 2021 TIME: 3:29 PM PAGER/CONTACT #: [phone] [facility] 12-20-2021 Note HNO ID: [id number] Author: Nhan Juan PA-C Service: Hospital Medicine Author Type: Physician Food Dehydrator Operator Type: Progress Notes Filed: 12/20/2021 3:19 PM Note Text: DEPARTMENT OF HOSPITAL MEDICINE PROGRESS NOTE SERVICE DATE: 12/20/2021 SERVICE TIME: 11:44 AM Hospital Medicine/Primary Attending: Karlie Martinez MD NIGHT AND WEEKEND COVERAGE: [place] COVERAGE: Days: [phone], please page attending physician. Nights: [phone], please page [facility] Night coverage pager [phone]. Subjective INTERVAL HPI: Chief complaint: Abdominal pain -Abdominal pain improving, no episodes overnight -Denies current abdominal pain, nausea, chills, or vomiting -Lipase and LFTs continue to downtrend -MRI panc/genesis revealed choledocholithiasis -Awaiting bed at [facility] for ERCP Current Facility-Administered Medications Medication Dose Route Frequency - iv contrast (radiology procedure) INTRAVENOUS DIRECTED PRN - heparin 5,000 Units injection 5,000 Units SUBCUTANEOUS q 12 H - NaCl 0.9% iv flush bag 20 mL INTRAVENOUS PRN - sodium chloride 0.9 % (flush) 3-5 mL (BD POSIFLUSH) 3-5 mL INTRAVENOUS q 12 H - NaCl 0.9% iv infusion 75 mL/hr INTRAVENOUS CONTINUOUS - metoprolol succinate ER 50 mg tab(s) (TOPROL XL) 50 mg ORAL DAILY - amLODIPine 2.5 mg tab(s) (NORVASC) 2.5 mg ORAL DAILY - levothyroxine 75 mcg tab(s) (SYNTHROID) 75 mcg ORAL BEFORE BREAKFAST DAILY - pantoprazole 40 mg injection (PROTONIX) 40 mg INTRAVENOUS DAILY (6 AM) - benzocaine-menthol 1 Lozenge (CEPACOL) 1 Lozenge MUCOUS MEMBRANE (TOPICAL MOUTH AND THROAT) q 2 H PRN - albuterol 2.5 mg /3 mL (0.083 %) 2.5 mg (PROVENTIL) 3 mL INHALATION q 4 H PRN - benzonatate 100 mg cap(s) (TESSALON PERLE) 100 mg ORAL TID PRN - calcium carbonate 500 mg chewable tab(s) (TUMS) 500 mg ORAL BID PRN - ondansetron (PF) 4 mg injection (ZOFRAN) 4 mg INTRAVENOUS q 6 H PRN - polyethylene glycol 3350 17 g packet (MIRALAX, GLYCOLAX) 17 g ORAL DAILY PRN - polyvinyl alcohol 1.4 % 1 Drop (LIQUIFILM TEARS) 1 Drop BOTH EYES TID PRN - melatonin 3 mg tab(s) 3 mg ORAL DAILY (8 PM) - ibuprofen 800 mg tab(s) (MOTRIN) 800 mg ORAL QID PRN - morphine 1 mg injection 1 mg INTRAVENOUS q 2 H PRN Objective PHYSICAL EXAM: BP 137/67 Pulse 66 Temp (Src) 98.1 (Oral) Resp 16 Ht 4' 11 (1.50m) Wt 193 lb 4.8 oz (87.7kg) SpO2 97% BMI 39.02 kg/(m2). O2 Therapy: Room Air Physical Exam Performed GENERAL: Alert, no acute distress, cooperative SKIN: Skin color, texture, turgor normal. No rashes or lesions. HEAD/SINUSES: Normocephalic. Atraumatic. No significant findings EYES: PERRLA, EOMI OROPHARYNX: Lips, mucosa, and tongue normal. Teeth and gums normal. Oropharynx normal. LUNGS: Lungs clear to auscultation, No wheezes, rales, or rhonchi. Good diaphragmatic excursion CARDIAC: Normal S1 and S2; no rubs, murmurs, or gallops ABDOMEN: Mild tenderness to epigastric region upon light and deep palpitation. No guarding, rigidity, or rebound tenderness. Abdomen soft, BS normal, No masses or organomegaly EXTREMITIES: Extremities with no deformities, clubbing or skin discoloration. Good capillary refill, No ulcers. +1 non pitting edema to BLE (R > L at baseline). NEURO: AANDO x3. Gait normal. Reflexes normal and symmetric. Sensation grossly intact PULSES: 2+ radial, 2+ dorsalis pedis Lines, Drains, and Airways Line Peripheral 12/18/21 2300 Assessment Short Left Wrist 22 Gauge 1 day Reviewed lines and needs to be continued: REASONS: Intravenous fluids DATA: Diagnostic tests reviewed for today's visit: Most recent labs Most recent imaging Assessment/Plan Problem List Acute gallstone pancreatitis POA: . Epigastric pain POA: Yes Transaminitis POA: Yes Choledocholithiasis POA: Yes Acquired hypothyroidism POA: Yes Primary hypertension POA: Yes Obesity, Class II, BMI 35-39.9 POA: . HOSPITAL COURSE: Lizzy Wild is a 76 year old female with a past medical history of?hypertension, hypothyroidism, hysterectomy, cholecystectomy,?and?history of DVT postoperatively. Patient presented to the ED on 12/16/2021 with a 12 hour history with severe epigastric abdominal pain. She has a history of transaminitis and was admitted to [facility] in February 2021. This episode was thought to be related to Keflex treatment. In the ED, patient was found to have Lipase > 1,200 and AST/ALT elevation. CT Chest/Abd/Pelvis was unremarkable for acute process (dissection r/o). MRI panc/genesis revealed choledocholithiasis. Biliary tract: Dilated common duct measuring up to 14 mm. ?No intrahepatic ductal dilatation. Multiple small filling defects in the distal common duct consistent with choledocholithiasis. Liver revealed tiny left hepatic lobe cyst. Kidneys revealed subcentimeter cysts. ? Acute Gallstone Pancreatitis Acute Transaminitis Epigastric Pain Choledocholithiasis S/P Cholecystectomy - Presented with a 12 hour history of severe (more content not included)... [facility] 12-19-2021 Note HNO ID: [id number] Author: Maame Mccoy APRN.[facility] Service: Hospital Medicine Author Type: Nurse Practitioner Type: Progress Notes Filed: 12/19/2021 10:35 AM Note Text: -- Attestation signed by Clark Rodríguez Jr., MD at 12/19/2021 5:21 PM (Updated) Attending Note I have personally reviewed the VIRTUALIZATION ARCHITECT progress note and discussed the case with her. Agree with the assessment and plan. Other additions or changes: None SIGNATURE: Clark Rodríguez Jr., MD DATE: December 19, 2021 TIME: 5:19 PM -- DEPARTMENT OF HOSPITAL MEDICINE PROGRESS NOTE SERVICE DATE: 12/19/2021 SERVICE TIME: 10:23 AM Hospital Medicine/Primary Attending: Clark Rodríguez Jr.,* NIGHT AND WEEKEND COVERAGE: [place] COVERAGE: Days: [phone], please page attending physician. Nights: [phone], please page [facility] Night coverage pager [phone]. Subjective INTERVAL HPI: Chief complaint: Abdominal pain -Awaiting bed at [facility] -Denies current abdominal pain, nausea, chills, or vomiting -Lipase and LFTs continue to downtrend Current Facility-Administered Medications Medication Dose Route Frequency - iv contrast (radiology procedure) INTRAVENOUS DIRECTED PRN - heparin 5,000 Units injection 5,000 Units SUBCUTANEOUS q 12 H - NaCl 0.9% iv flush bag 20 mL INTRAVENOUS PRN - sodium chloride 0.9 % (flush) 3-5 mL (BD POSIFLUSH) 3-5 mL INTRAVENOUS q 12 H - NaCl 0.9% iv infusion 75 mL/hr INTRAVENOUS CONTINUOUS - morphine 2 mg injection 2 mg INTRAVENOUS q 2 H PRN - metoprolol succinate ER 50 mg tab(s) (TOPROL XL) 50 mg ORAL DAILY - amLODIPine 2.5 mg tab(s) (NORVASC) 2.5 mg ORAL DAILY - levothyroxine 75 mcg tab(s) (SYNTHROID) 75 mcg ORAL BEFORE BREAKFAST DAILY - pantoprazole 40 mg injection (PROTONIX) 40 mg INTRAVENOUS DAILY (6 AM) - benzocaine-menthol 1 Lozenge (CEPACOL) 1 Lozenge MUCOUS MEMBRANE (TOPICAL MOUTH AND THROAT) q 2 H PRN - albuterol 2.5 mg /3 mL (0.083 %) 2.5 mg (PROVENTIL) 3 mL INHALATION q 4 H PRN - benzonatate 100 mg cap(s) (TESSALON PERLE) 100 mg ORAL TID PRN - calcium carbonate 500 mg chewable tab(s) (TUMS) 500 mg ORAL BID PRN - melatonin 1 mg tab(s) 1 mg ORAL AT BEDTIME PRN - ondansetron (PF) 4 mg injection (ZOFRAN) 4 mg INTRAVENOUS q 6 H PRN - polyethylene glycol 3350 17 g packet (MIRALAX, GLYCOLAX) 17 g ORAL DAILY PRN - polyvinyl alcohol 1.4 % 1 Drop (LIQUIFILM TEARS) 1 Drop BOTH EYES TID PRN - oxyCODONE IR 5-10 mg tab(s) (ROXICODONE) 5-10 mg ORAL q 4 H PRN Objective PHYSICAL EXAM: BP 142/63 Pulse 58 Temp (Src) 97.8 (Oral) Resp 16 Ht 4' 11 (1.50m) Wt 193 lb 4.8 oz (87.7kg) SpO2 94% BMI 39.02 kg/(m2). O2 Therapy: Room Air Physical Exam Performed GENERAL: Alert, no distress, cooperative SKIN: Skin color, texture, turgor normal. No rashes or lesions. HEAD/SINUSES: No significant findings EYES: PERRLA, EOMI OROPHARYNX: Lips, mucosa, and tongue normal. Teeth and gums normal. Oropharynx normal. LUNGS: Lungs clear to auscultation, Good diaphragmatic excursion CARDIAC: Normal S1 and S2; no rubs, murmurs, or gallops ABDOMEN: Abdomen soft, mild tenderness to epigastric area upon palpitation, BS normal, No masses or organomegaly EXTREMITIES: Extremities with no deformities, clubbing or skin discoloration. Good capillary refill, No ulcers. +1 non pitting edema to BLE. NEURO: Gait normal. Reflexes normal and symmetric. Sensation grossly intact PULSES: 2+ radial, 2+ dorsalis pedis Lines, Drains, and Airways Line Peripheral 12/18/21 2300 Assessment Short Left Wrist 22 Gauge <1 day Reviewed lines and needs to be continued: REASONS: Intravenous fluids DATA: Diagnostic tests reviewed for today's visit: Most recent labs Most recent imaging Assessment/Plan Problem List Acute gallstone pancreatitis POA: . Epigastric pain POA: Yes Transaminitis POA: Yes Choledocholithiasis POA: Yes Acquired hypothyroidism POA: Yes Primary hypertension POA: Yes Obesity, Class II, BMI 35-39.9 POA: . HOSPITAL COURSE: Lizzy Wild is a 76 year old female with a past medical history of?hypertension, hypothyroidism, hysterectomy, cholecystectomy,?and?history of DVT postoperatively. Patient presented to the ED on 12/16/2021 with a 12 hour history with severe epigastric abdominal pain. She has a history of transaminitis and was admitted to [facility] in February 2021. This episode was thought to be related to Keflex treatment. In the ED, patient was found to have Lipase > 1,200 and AST/ALT elevation. CT Chest/Abd/Pelvis was unremarkable for acute process (dissection r/o) ? Acute Gallstone Pancreatitis Acute Transaminitis Epigastric Pain Choledocholithiasis S/P Cholecystectomy - Presented with a 12 hour history of severe epigastric pain with associated elevated lipase and LFT (more content not included)... [facility] 12-18-2021 Note HNO ID: [id number] Author: Richard Thapa PA-C Service: Hospital Medicine Author Type: Physician Food Dehydrator Operator Type: Plan of Care Filed: 12/18/2021 12:15 PM Note Text: DEPARTMENT OF HOSPITAL MEDICINE PLAN OF CARE SERVICE DATE: 12/18/2021 Code Status: Prior SERVICE TIME: 12:13 PM Primary Care Physician: Kinsey Vital APRN.VIRTUALIZATION ARCHITECT NIGHT AND WEEKEND COVERAGE: [place] COVERAGE: Days: [phone], please page attending physician. Nights: [phone], please page [facility] Night coverage pager [phone]. Patient requires ERCP for intervention of choledocholithiasis and pancreatitis. Accepted: [facility] Service: Hospital Medicine Attending: Dr. Edwards Patient is stable for transfer, and can be transferred when a bed becomes available. SIGNATURE: Richard Thapa PA-C PATIENT NAME: Lizzy Wild DATE: December 18, 2021 TIME: 12:[address] [facility] 12-18-2021 Note HNO ID: [id number] Author: Richard Thapa PA-C Service: Hospital Medicine Author Type: Physician Food Dehydrator Operator Type: Progress Notes Filed: 12/18/2021 9:56 AM Note Text: -- Attestation signed by Clark Rodríguez Jr., MD at 12/18/2021 5:56 PM Attending Note I have personally reviewed the PA-C progress note. Agree with the assessment and plan. Other additions or changes: None SIGNATURE: Clark Rodríguez Jr., MD DATE: December 18, 2021 TIME: 5:56 PM -- DEPARTMENT OF HOSPITAL MEDICINE PROGRESS NOTE SERVICE DATE: 12/18/2021 SERVICE TIME: 9:48 AM Hospital Medicine/Primary Attending: Clark Rodríguez Jr.,* NIGHT AND WEEKEND COVERAGE: [place] COVERAGE: Days: [phone], please page attending physician. Nights: [phone], please page [facility] Night coverage pager [phone]. Subjective INTERVAL HPI: Patient is resting in bed. Pain has improved overnight. Mild discomfort. No fever, chills, nausea, or vomiting overnight. MRCP shows evidence of ductal dilation and choledocholithiasis. Lipase improved, but continued transaminitis. No signs of cholangitis. Discussed results with RN, Patient, and Family. Okay with transfer Current Facility-Administered Medications Medication Dose Route Frequency - iv contrast (radiology procedure) INTRAVENOUS DIRECTED PRN - heparin 5,000 Units injection 5,000 Units SUBCUTANEOUS q 12 H - NaCl 0.9% iv flush bag 20 mL INTRAVENOUS PRN - sodium chloride 0.9 % (flush) 3-5 mL (BD POSIFLUSH) 3-5 mL INTRAVENOUS q 12 H - NaCl 0.9% iv infusion 125 mL/hr INTRAVENOUS CONTINUOUS - ondansetron orally disintegrating 4 mg tab(s) (ZOFRAN ODT) 4 mg ORAL q 6 H PRN Or - ondansetron (PF) 4 mg injection (ZOFRAN) 4 mg INTRAVENOUS q 6 H PRN - polyethylene glycol 3350 17 g packet (MIRALAX, GLYCOLAX) 17 g ORAL DAILY PRN - oxyCODONE IR 5-10 mg tab(s) (ROXICODONE) 5-10 mg ORAL q 4 H PRN - morphine 2 mg injection 2 mg INTRAVENOUS q 2 H PRN - iv contrast (radiology procedure) INTRAVENOUS DIRECTED PRN - metoprolol succinate ER 50 mg tab(s) (TOPROL XL) 50 mg ORAL DAILY - amLODIPine 2.5 mg tab(s) (NORVASC) 2.5 mg ORAL DAILY - levothyroxine 75 mcg tab(s) (SYNTHROID) 75 mcg ORAL BEFORE BREAKFAST DAILY - pantoprazole 40 mg injection (PROTONIX) 40 mg INTRAVENOUS DAILY (6 AM) Objective PHYSICAL EXAM: BP 145/60 Pulse 56 Temp (Src) 98.1 (Oral) Resp 17 Ht 4' 11 (1.50m) Wt 193 lb 4.8 oz (87.7kg) SpO2 97% BMI 39.02 kg/(m2). O2 Therapy: Room Air Physical Exam Performed General: NAD, resting comfortably in bed, polite and cooperative HEENT: Normocephalic, atraumatic, Pupils are equal, round, and reactive to light, EOMI, Mucus membranes moist, tongue is pink and midline Lungs: CTA bilaterally without wheezes, rales, rhonchi. Unlabored respiratory effort Heart: Regular rate and rhythm without ectopy Abdomen: Soft, mild epigastric pain to light and deep palpation. bowel sounds present in all sesay, no HSM, no rebound or guarding. Musculoskeletal: Normal muscle bulk and tone. Appears to have full ROM of the UE/LE without deficit. Vascular: Cap refill brisk less than 2 sec. No cyanosis or edema. Neuro: CN II-XII intact. Answers all questions appropriately. Skin: No rashes, lesions, or cellulitis Lines, Drains, and Airways Line Peripheral 12/17/21 0326 Admission to Hospital Short Left Antecubital 1 day Reviewed lines and needs to be continued: REASONS: Intravenous fluids DATA: Diagnostic tests reviewed for today's visit: Most recent labs Most recent imaging Assessment/Plan Problem List Acute gallstone pancreatitis POA: . Transaminitis POA: Yes Epigastric pain POA: Yes Choledocholithiasis POA: Yes Acquired hypothyroidism POA: Yes Primary hypertension POA: Yes Obesity, Class II, BMI 35-39.9 POA: . HOSPITAL COURSE: Lizzy Wild is a 76 year old female presented with past medical history of hypertension, hypothyroidism, hysterectomy, cholecystectomy, and history of DVT postoperatively. Patient presented to the ED on 12/16/2021 with a 12 hour history with severe epigastric abdominal pain. She has a history of transaminitis and was admitted to [facility] in February 2021. This episode was thought to be related to Keflex treatment. In the ED, patient was found to have Lipase > 1,200 and AST/ALT elevation. CT Chest/Abd/Pelvis was unremarkable for acute process (dissection r/o) ? Acute Gallstone Pancreatitis Acute Transaminitis Epigastric Pain Choledocholithiasis S/P Cholecystectomy - Presented with a 12 hour history of severe epigastric pain with associated elevated lipase and LFTs - No recent medication changes per the patient - Does not smoke or drink alcohol - CT Chest/Abd/Pelvis: No evidence of inflammatory changes around pancreas or evidence of b (more content not included)... [facility] 12-18-2021 Note HNO ID: [id number] Author: Interface Note Service: ? Author Type: ? Type: Progress Notes Filed: 12/18/2021 5:48 AM Note Text: Epic Scheduled Downtime: 2021 10:00:00 PM to 12/18/2021 5:00:[address] [facility] 02-09-2021 Note HNO ID: [id number] Author: Nora Brooks RN Service: Care Management Author Type: Registered Nurse Type: Care Mgt Initial Assessment Filed: 02/09/2021 2:04 PM Note Text: CARE MANAGEMENT PROGRESS NOTE SERVICE DATE: 02/09/2021 SERVICE TIME: 2:04 PM LOS: 3 days Current Advance Directive: None Supervisor Electronic Coils Attempted to Assist with AD Completion: Yes Action: Education Provided This patient has been screened for Care Management Transitional Planning Services. At this time, it does not appear this patient will require transition planning services. Should this change, and the patient require transition planning services during this admission, please call [phone]. SIGNATURE: Nora Brooks, RN, BSN PATIENT NAME: Lizzy Wild DATE: February 09, 2021 TIME: 2:04 PM PAGER/CONTACT #: [phone] [facility] 02-09-2021 Note HNO ID: [id number] Author: Jimmy Marroquin MD Service: General Internal Medicine Author Type: Physician Type: Progress Notes Filed: 02/09/2021 1:02 PM Note Text: INPATIENT PROGRESS NOTE Interval History - Transaminitis stable today not significantly change from yesterday. Cause presumed as medication side effect from Keflex - Patient was doing well yesterday and tolerated oral intake with a fluid diet. - Regular diet attempted but patient had epigastric pain, vomiting, and an episode of diarrhea afterwards - AI hepatitis work-up still pending Plan of the day - Consult GI for possible EGD today or early tomorrow to look for other causes of epigastric pain and vomiting - If no EGD today will attempt tolerating oral intake again today - Will try to arrange for discharge tomorrow after EGD and follow up with PCP with a CMP Assessment and Plan (Active problems are listed before chronic problems) 75 year old female with PMHx of hypothyroidism and HTN who presents with 2 weeks of epigastric abdominal pain of unknown origin and transaminitis. Admitted for further work-up #Abdominal pain (significantly improved) #Elevated LFTs (trending down) - multifocal abdominal pain may suggest multiple causes of abdominal pain - RUQ pain 2/2 acute hepatitis possibly 2/2 keflex. Other considerations include choledocholithiasis vs esophageal etiology vs PUD - LLQ pain likely 2/2 constipation and resolved with patient starting to have bowel motions. 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 Neff in [place]) but as patient still has epigastric pain and vomiting will attempt to get EGD while inpatient #HTN - well controlled, keep home meds - amlodipine 5mg daily - metoprolol succinate 50mg daily #Leg swelling R>L - R > L leg swelling for a few months - h/o DVT while on OCP after hysterectomy - DVT US : No DVT - Plan: Keep on prophylactic AC Observation for any increase in swelling Leg elevation as Active Hospital Problems Diagnosis - Abdominal pain Objective BP 143/57 Pulse 69 Temp 36.9 ?C (98.4 ?F) (Oral) Resp 22 Ht 149.9 cm (4' 11 ) Wt 95.1 kg (209 lb 10.5 oz) SpO2 98% BMI 42.35 kg/m? RELEVANT PHYSICAL EXAM: GENERAL: Looks well. Oriented to time, place and person. NECK: No thyroid enlargement. Trachea in midline. LUNGS: No respiratory distress. Accessory muscles of respiration not being used prominently. Breath sounds normal. CARDIAC: Heart sounds normal. Peripheral pulses normal. ABDOMEN: No distention. Soft. No tenderness except for mild epigastric tenderness to deep palpation. No palpable hepatosplenomegaly or other masses. : No renal angle tenderness. No suprapubic tenderness. SKIN: No rashes. NEURO: No gross focal higher mental function, cranial nerve, motor or sensory deficits. Normal gait and coordination. New Labs CBC, Coags, BMP, Mg, Phos Recent Labs 02/09/21 0638 02/08/21 0349 02/07/21 1630 02/07/21 1456 WBC 8.08 9.57 -- 8.06 HB 12.8 12.7 -- 13.7 HCT 41.2 40.1 -- 43.7 PLT 246 220 -- 223 INR -- -- 1.0 -- NA 142 142 -- 144 K 4.0 3.7 -- 3.5* CHLOR 107* 106* -- 106* CO2 21* 22 -- 23 BUN 15 14 -- 9 CREAT 0.89 0.91 -- 0.82 GLUC 115* 115* -- 90 CA 9.6 9.4 -- 9.8 Liver Function, Amylase, AND Lipase Recent Labs 02/09/21 0638 02/08/21 0349 02/07/21 1456 TPROT 6.9 6.6 7.4 ALB 3.9 3.8* 4.3 ALT 246* 242* 340* AST 157* 86* 160* ALKPHOS 208* 192* 229* TBILI 0.4 0.3 0.5 Input/ Output Medication and Non-Pharmacologic VTE Prophylaxis/Anticoagulants Current Facility-Administered Medications Medication Dose Route Frequency Provider Last Rate Last Admin - [START ON 02/10/2021] levothyroxine 100 mcg tab(s) (SYNTHROID) 100 mcg ORAL BEFORE BREAKFAST DAILY Jose Rausch MD - ondansetron (PF) 4 mg injection (ZOFRAN) 4 mg INTRAVENOUS q 6 H PRN Ayala Renteria MD 4 mg at 02/08/212236 - maalox-lidocaine 5 mL oral liquid (GI COCKTAIL) 5 mL ORAL q 6 H PRN Stalin Patton MD 5 mL at 02/08/21 2321 - metoprolol succinate ER 50 mg tab(s) (TOPROL XL) 50 mg ORAL DAILY Stalin Patton MD 50 (more content not included)... [facility] 02-08-2021 Note HNO ID: [id number] Author: Jimmy Marroquin MD Service: General Internal Medicine Author Type: Physician Type: Progress Notes Filed: 02/08/2021 3:43 PM Note Text: INPATIENT PROGRESS NOTE Interval History - Transaminitis improving. Cause still being investigated. - Patient feeling much better. Pain is well controlled. - Can tolerate oral intake - Hepatology on board and will follow with recs and if need to consult GI for ERCP? Plan of the day - Follow-up pending hepatitis work-up - Start with regular diet (patient was able to tolerate liquid diet last night)) - Follow-up with hepatology recs and see if they recommend GI consult for ERCP/EGD Assessment and Plan (Active problems are listed before chronic problems) 75 year old female with PMHx of hypothyroidism and HTN who presents with 2 weeks of epigastric abdominal pain of unknown origin and transaminitis. Admitted for further work-up #Abdominal pain (significantly improved) #Elevated LFTs (trending down) - multifocal abdominal pain may suggest multiple causes of abdominal pain - RUQ pain 2/2 acute hepatitis possibly 2/2 keflex. Other considerations include choledocholithiasis vs esophageal etiology vs PUD - LLQ pain likely 2/2 constipation and resolved with patient starting to have bowel motions. 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 Neff in [place]) #Leg swelling R>L - R > L leg swelling for a few months - h/o DVT while on OCP after hysterectomy - DVT US : No DVT - Plan: Keep on prophylactic AC Observation for any increase in swelling Leg elevation as Active Hospital Problems Diagnosis - Abdominal pain Objective BP 122/57 Pulse 60 Temp 37 ?C (98.6 ?F) (Oral) Resp 17 Ht 149.9 cm (4' 11 ) Wt 95.1 kg (209 lb 10.5 oz) SpO2 95% BMI 42.35 kg/m? RELEVANT PHYSICAL EXAM: GENERAL: Looks well. Oriented to time, place and person. NECK: No thyroid enlargement. Trachea in midline. LUNGS: No respiratory distress. Accessory muscles of respiration not being used prominently. Breath sounds normal. CARDIAC: Heart sounds normal. Peripheral pulses normal. ABDOMEN: No distention. Soft. No tenderness except for mild epigastric tenderness to deep palpation. No palpable hepatosplenomegaly or other masses. : No renal angle tenderness. No suprapubic tenderness. SKIN: No rashes. NEURO: No gross focal higher mental function, cranial nerve, motor or sensory deficits. Normal gait and coordination. New Labs CBC, Coags, BMP, Mg, Phos Recent Labs 02/08/21 0349 02/07/21 1630 02/07/21 1456 02/06/21 0528 WBC 9.57 -- 8.06 7.58 HB 12.7 -- 13.7 13.0 HCT 40.1 -- 43.7 40.4 PLT 220 -- 223 215 INR -- 1.0 -- -- NA 142 -- 144 142 K 3.7 -- 3.5* 4.3 CHLOR 106* -- 106* 106* CO2 22 -- 23 24 BUN 14 -- 9 8 CREAT 0.91 -- 0.82 0.75 GLUC 115* -- 90 103* CA 9.4 -- 9.8 9.3 MG -- -- -- 2.0 Liver Function, Amylase, AND Lipase Recent Labs 02/08/21 0349 02/07/21 1456 02/06/21 0528 02/05/21 1600 TPROT 6.6 7.4 6.8 -- ALB 3.8* 4.3 4.1 -- ALT 242* 340* 480* -- AST 86* 160* 537* -- ALKPHOS 192* 229* 230* -- TBILI 0.3 0.5 1.2 -- LACT -- -- -- 1.9 Input/ Output Medication and Non-Pharmacologic VTE Prophylaxis/Anticoagulants Current Facility-Administered Medications Medication Dose Route Frequency Provider Last Rate Last Admin - maalox-lidocaine 5 mL oral liquid (GI COCKTAIL) 5 mL ORAL q 6 H PRN Stalin Patton MD - metoprolol succinate ER 50 mg tab(s) (TOPROL XL) 50 mg ORAL DAILY Stalin Patton MD 50 mg at 02/08/2151 - amLODIPine 2.5 mg tab(s) (NORVASC) 2.5 mg ORAL DAILY Stalin Patton MD 2.5 mg at 02/08/2151 - pantoprazole DR 40 mg tab(s) (PROTONIX) 40 mg ORAL DAILY (6 AM) Stalin Patton MD 40 mg at 02/08/21 0512 - levothyroxine 75 mcg tab(s) (SYNTHROID) 75 mcg ORAL BEFORE BREAKFAST DAILY Stalin Patton MD 75 mcg at 02/08/21 0512 - NaCl 0.9% iv flush bag 20 mL INTRAVENOUS PRN Stalin Patton MD - sodium chloride 0.9 % (flush) 3-5 mL (BD POSIFLUSH) 3-5 mL INTRAVENOUS q 12 H Stalin Patton MD 5 mL at 02/08/21 0851 - polyethylene glycol 3350 17 g packet (MIRALAX, GLYCOLAX) 17 g ORAL DAILY Stalin Ruvalcaba (more content not included)... [facility] 02-07-2021 Note HNO ID: [id number] Author: Jessica Matute [facility] Service: Pharmacy Author Type: Pharmacist Type: Plan of Care Filed: 02/07/2021 1:30 PM Note Text: PHARMACY MEDICATION REVIEW Patient Name: Lizzy Wild : 1945 The following medications were updated within the [employer] medication list: Medications ADDED to [employer] medication list ? Ibuprofen 800mg TID prn pain Medications CHANGED on [employer] medication list ? Levothyroxine changed from 75mcg to 100mcg once daily ? Omeprazole changed from 40mg to 20mg once daily Medications REMOVED from [employer] medication list ? None Additional comments: Recent antibiotics: ? Cephalexin 500mg BID x 10 days starting 02/01/21 ? Metronidazole 250mg TID x 10 days starting 02/04/21 The below information represents the best possible medication history: Yes Medication history completed by: Pharmacist: Jessica Matute [facility] Source of history: Pharmacy records: [facility], [facility] records and Care Everywhere records Medication nonadherence identified: No barriers noted Reconciliation completed: Yes Medications intentionally held at admission: ibuprofen and Discussed with LIP, plans to modify levothyroxine based on updated medication history Patient interested in Bedside Delivery Services or using [facility] OP Pharmacy at discharge? Unable to assess Preferred outpatient pharmacy: e- [facility]/pharmacy #[id number] [place] [address] [address] [facility] [phone] Allergies: Ciprofloxacin GI Upset Prior to Admission medications as of 02/07/21 1327 Medication Sig Last Dose Taking levothyroxine (SYNTHROID) 100 mcg tablet Take 100 mcg by mouth daily before breakfast. 02/06/2021 at Unknown time Yes omeprazole (PRILOSEC) 20 mg capsule Take 20 mg by mouth once daily. 02/06/2021 at Unknown time Yes amLODIPine (NORVASC) 2.5 mg tablet Take 2.5 mg by mouth once daily. 02/06/2021 at Unknown time Yes metoprolol succinate ER (TOPROL XL) 50 mg 24 hr tablet Take 50 mg by mouth once daily. 02/06/2021 at Unknown time Yes ibuprofen (MOTRIN) 800 mg tablet Take 800 mg by mouth every 8 hours as needed for pain. Jessica Matute RPh 02/07/2021 [facility] 02-07-2021 Note HNO ID: [id number] Author: RT Hubert(R) Service: ? Author Type: Weight And Test Bar Clerk Type: Progress Notes Filed: 02/07/2021 12:31 PM Note Text: Radiology Service Progress Note PATIENT NAME: Lizzy Wild DATE OF SERVICE: February 07, 2021 TIME: 12:30 PM PATIENT IDENTITY VERIFICATION COMPLETED USING TWO (2) IDENTIFIERS: Name and Date of confirmed by patient verbally and Name and Date of confirmed by identification band. FALL SCREENING: Has the patient had 2 falls in the last year or 1 fall with injury or currently using an Ambulatory Assistive Device (Walker, Cane, Wheelchair, Crutches, etc.)? Inpatient: Screened on floor PATIENT GENDER DATA: Female. status: Unknown status: N/A PATIENT RELEVANT IMPLANT DATA REVIEWED: Not Applicable RADIOLOGY DEPARTMENT: Ultrasound PERIPHERAL IV DATA: Not applicable SIGNED BY: Renae Basurto RDMS RVTommy February 07, 2021 12:30 PM [facility] documented as of this encounter (statuses as of 10/27/2021) [facility]09-04-2021 History of Past illness Narrative* Problem Noted Date Resolved Date Abdominal pain 02/06/2021 02/10/2021 documented as of this encounter (statuses as of 12/29/2021) [facility]09-04-2021 NoteHNO ID: [id number] Author: Nirav Wild MD Service: Hospital Medicine Author Type: Physician Type: Progress Notes Filed: 02/06/2021 4:08 PM Note Text: DEPARTMENT OF HOSPITAL MEDICINE PROGRESS NOTE SERVICE DATE: 02/06/2021 SERVICE TIME: 11:25 AM Hospital Medicine/Primary Attending: Nirav Wild MD NIGHT AND WEEKEND COVERAGE: [place] COVERAGE: Nights: [phone], please page [facility] Night coverage pager [phone]. Assessment/Plan ASSESSMENT No chest pain or shortness of breath ? APPENDECTOMY - CHOLECYSTECTOMY - HYSTERECTOMY - Needs ERCP no one available for this at [facility] - Cefoxitin per recommendations in up-to-date PLAN - On transfer list for [facility] - Transfer forms were filled out - Discussed with her and her two sons transferred to [facility] or [place] but that she could not be on the [facility] and the [facility] [place] at the same time. - MRI tomorrow Reason for Admission: Common bile duct stone Consultants: Dr. Sweeney for GI PROCEDURES: NONE Disposition: Transfer to higher level of care where ERCP will be available EK02/05/2021 sinus tachycardia LAE minor nonspecific ST-T changes probably rate dependent no change from report from [facility] clinic syn 02/02/2021 ECHO: None HOSPITAL COURSE: Lizzy Wild is a 75 year old female presented with past medical history of hypothyroidism, hypertension and a recent UTI on Keflex who presented to the ER on 02/05/2021 with complaints of epigastric pain as well as chest pain. Patient reported that her symptoms felt similar to 1 week prior at which time she had been evaluated at the [place] ER with CT angiogram of the chest which ruled out a PE. She was subsequently discharged with PPI therapy however presented again with similar complaints. Was found to be hypertensive in the ER. Blood work showed mild transaminitis. CT of the abdomen did not show any acute pathology. On-call GI was contacted who recommended evaluation with an ERCP and transfer to a higher level of care. Patient waited 14 hours in the ER for a bed at [facility] however this was not available and subsequently the patient was boarded to our service with plans to transfer out to an appropriate facility once a bed is available. She states has had ~ 1.5 weeks of constant epigastric pain described as stabbing with radiation to her back. States pushing on area makes pain better. Sometimes eating worsens pain. No nausea or vomiting. (+) chills. Pain currently 3/10 and previously 1010 at time of ER eval yesterday. Reports use of Omeprazole 20 mg po daily. Reports dysphagia with solids only. Denies odynophagia. States typically moves her bowels daily but has felt constipated with incomplete emptying over the past week. Denies hematochezia but states stool are darker in color. No weight loss. Uses Ibuprofen prn. Recent Labs 02/06/21 0528 02/05/21 1445 MCV 94.4 92.7 MCH 30.4 30.8 MPV 11.5 12.2 Recent Labs 02/06/21 0528 02/05/21 1445 WBC 7.58 11.62* RBC 4.28 4.67 HB 13.0 14.4 HCT 40.4 43.3 PLT 215 236 MCV 94.4 92.7 MCH 30.4 30.8 MPV 11.5 12.2 Recent Labs 02/06/21 0528 02/05/21 1445 GLUC 103* 98 NA 142 140 K 4.3 3.6* CHLOR 106* 104 CO2 24 23 CREAT 0.75 0.77 BUN 8 12 ANION 12 13 CA 9.3 9.9 TPROT 6.8 7.7 ALB 4.1 4.6 TBILI 1.2 0.7 ALKPHOS 230* 217* AST 537* 613* ALT 480* 310* Recent Labs 02/06/2128 02/05/21 1445 BUN 8 12 CREAT 0.75 0.77 CA 9.3 9.9 MG 2.0 1.9 Most recent labs PHYSICAL EXAM: BP 146/77 Pulse 80 Temp (Src) 97.5 (Oral) Resp 18 Ht 4' 11 (1.50m) Wt 200 lb 6.4 oz (90.9kg) SpO2 96% BMI 40.45 kg/(m2). O2 Therapy: Room Air Physical Exam Performed GENERAL: Alert, no distress, cooperative NECK: No jugulovenous distention, Supple LUNGS: Clear to auscultation, respiratory distress - no CARDIAC: Rhythm: regular rate and rhythm, Rate: normal, S1: normal intensity, S2: normal intensity, murmur -none audible ABDOMEN: Abdomen soft, subxiphoid region to palpation is very tender, BS normal, No masses or organomegaly EXTREMITIES: No edema, no cords NEURO: Grossly normal cognition and motor function The remainder of the physical exam is noncontributory. Choledocholithiasis POA: Yes Transaminitis POA: Yes Acute UTI POA: Yes Primary hypertension POA: Yes Acquired hypothyroidism POA: Yes Principal Problem: Choledocholithiasis Assessment AND Plan: T-max 98 4 and WBC down to 7.6 from 11.6-continue with cefoxitin for antibiotic coverage as patient still having pain and liver enzymes are elevated Active Problems: Transaminitis Assessment AND Plan: Secondary to principal problem Hepatitis A and B- Acute UTI Assessment AND Plan: Treatment is completed Current Facility-Administered Medications Medication Dose Route Frequency - iv contrast (radiology procedure) INTRAVENOUS DIRECTED MI (more content not included)...[id number] NoteHNO ID: [id number] Author: RT Gabriela(R) Service: Radiology Author Type: Weight And Test Bar Clerk Type: Progress Notes Filed: 02/05/2021 3:11 PM Note Text: Radiology Service Progress Note PATIENT NAME: Lizzy Wild DATE OF SERVICE: February 05, 2021 TIME: 3:11 PM PATIENT IDENTITY VERIFICATION COMPLETED USING TWO (2) IDENTIFIERS: Name and Date of confirmed by patient verbally. FALL SCREENING: Has the patient had 2 falls in the last year or 1 fall with injury or currently using an Ambulatory Assistive Device (Walker, Cane, Wheelchair, Crutches, etc.)? No PATIENT GENDER DATA: Female. status: : No status: N/A PATIENT RELEVANT IMPLANT DATA REVIEWED: Not Applicable RADIOLOGY DEPARTMENT: General X-ray: Exam(s) Completed: Chest X-Ray PERIPHERAL IV DATA: Not applicable SIGNED BY: RT Gabriela(R) February 05, 2021 3:11 PMSt[facility] [id number] Hospital Discharge instructions* Instructions* Kameron Solomon MD - 01/30/2021 Stop your omeprazole 20 mg daily and start the omeprazole 40 mg daily I prescribed. Call your engine head repairer Kinsey Vital Monday to schedule outpatient follow-up and call your railway station manager on Monday to for further work-up and evaluation including possible upper endoscopy. Return to the ER if you develop any new or unusual chest pains or shortness of breath sweatiness feeling like you are faint or passing out. Also if you develop any worsening abdominal pain or gastrointestinal bleeding either vomiting blood or passing blood per stool. * Attachments The following attachments cannot be sent through Care Everywhere. * Esophagitis ([place]i) * Chest Pain ([place]) [facility] Work Phone: Evaluation note* Diagnosis Other chest pain- Primary Esophagitis Esophagitis, unspecified documented in this encounter [facility] Work Phone: Advance Directives No Advanced Directives Records FoundDocuments on File Type Date Recorded Patient Transport Nurse Expl anation ACP-Advance Directive ACP-Power of Pain Medicine Physician Documents on File Type Date Recorded Patient Transport Nurse Expl anation Advance Directive(s) 02/07/2021 4:40 PM Advance Directive(s) 02/05/2021 3:08 PM Latest Code Status on File Code Status Date Activated Date Inactivated Comments Full Code 02/07/2021 12:52 AM 02/10/2021 8:52 PM Full Code Order Discussed With: Patient Full Code 02/06/2021 7:02 AM 02/06/2021 9:38 PM Documents on File Type Date Recorded Patient Transport Nurse Expl anation Advance Directive(s) 2021 4:08 AM Advance Directive(s) 02/07/2021 4:40 PM Advance Directive(s) 02/05/2021 3:08 PM Summary Purpose Family History No Family History Records FoundNo Family History Records FoundNo Family History Records FoundNo Family History Records Found Additional Source Comments Reason for Visit (unrecogniz ed section and content) Reason Comments Follow Up F/U - attempt made. No answer Ordered Prescriptions (unrec ognized section and content) Scheduled Active and Recently Administ ered Medications (unrecognized section and content) PRN Medication Order 01/28/2021 01/29/2021 01/30/2021 iopamidol (ISOVUE-370) 76 % injection 75 mL (COMPLETED) 75 mL, IntraVENous, IMG ONCE PRN, Other, Starting on 01/30/21 at 1245, For 1 dose 1323 (Given - Provid er: Bhanu Kiran) INFORMATION SOURCE (unrecogn ized section and content) DATE CREATED AUTHOR AUTHOR'S ORGANIZ ATION 12/23/2021 [facility] DATE CREATED AUTHOR AUTHOR'S ORGANIZ ATION 12/26/2021 [facility] DATE CREATED AUTHOR AUTHOR'S ORGANIZ ATION 01/01/2022 [facility] Source Comments (unrecognize d section and content) In the event this informatio n is protected by the Federal Confidentiality of Alcohol and Drug Abuse Patient Records regulations: The Federal rules restrict any use of the information to criminally investigate or prosecute any alcohol or drug abuse patient.[facility] the event this information is protected by the Federal Confidentiality of Alcohol and Drug Abuse Patient Records regulations: The Federal rules restrict any use of the information to criminally investigate or prosecute any alcohol or drug abuse patient.[facility] Hospital[facility] the event this information is protected by the Federal Confidentiality of Alcohol and Drug Abuse Patient Records regulations: The Federal rules restrict any use of the information to criminally investigate or prosecute any alcohol or drug abuse patient.[facility] Care Teams (unrecognized sec tion and content) Completion Engineer Relationship Specialty Start Date End Date Kinsey Vital, [place] [address] [place] [address] PCP - General Family Practice 03/22/16 FOR RECORDS PERTAINING TO PATIENTS WHO ARE OR HAVE BEEN ENROLLED IN A CHEMICAL DEPENDENCY/SUBSTANCEABUSE PROGRAM, SOME INFORMATION MAY BE OMITTED. This clinical summary was aggregated from multiple sources. Caution should be exercised in using it in the provision of clinical care. This summary normalizes information from multiple sources, and as a consequence, information in this document may materially change the coding, format and clinical context of patient data. In addition, data may be omitted in some cases. CLINICAL DECISIONS SHOULD BE BASED ON THE PRIMARY CLINICAL RECORDS. [facility] [employer] [facility]. provides no warranty or guarantee of the accuracy or completeness of information in this document.
[2023-07-11 20:53] LABS: Absolute Lymphocyte Count 6.23 X10^3/uL (0.83-4.51); Absolute Neutrophil Count 3.5 X10^3/uL (2.0-7.7); Basophil# 0.11 X10^3/uL; Eosinophil# 0.47 X10^3/uL; Eosinophils% 4.2 % (0-5); Hematocrit 44.4 % (37-47); Hemoglobin 13.7 g/dL (12.0-15.0); Lymphocyte # 6.23 X10^3/ul (0.83-4.51); Lymphocyte % 55.2 % (19-41); Mean Corp Hgb Conc 30.9 g/dL (32-36); Mean Corpuscular Volume 94.1 fL (81-99); Mean Platelet Vol. 12.8 fl (6.2-12.0); Monocyte% 8.9 % (0-10); NRBC Flagged by Analyzer 0 % (0-5); Neutrophil # 3.46 X10^3/uL (2.7-7.7); Neutrophil % 30.5 % (47-70); POSITIVE DIFFERENTIAL YES; POSITIVE MORPHOLOGY YES; Platelet Count 261 K/mm3 (150-450); RBC Distribution Width CV 13.5 % (11.6-14.6); Red Blood Count 4.72 M/mm3 (4.2-5.4); White Blood Count 11.3 K/mm3 (4.4-11.0)
[2023-07-11 21:12] LABS: AST(SGOT) 19 U/L (15-37); Alanine Aminotransfer ALT/SGPT 27 U/L (13-56); Albumin, Serum 3.8 g/dL (3.2-5.0); Alkaline Phosphatase 89 U/L (45-117); Anion Gap 4 (5-15); BUN 14 mg/dL (7-18); BUN/Creat Ratio 14.2 RATIO (10-20); Calcium,Total 9.1 mg/dL (8.5-10.1); Chloride 106 mmol/L (98-107); Cholesterol 255 mg/dL (200); Creatinine, Serum 0.98 mg/dL (0.55-1.02); EST Glomerular Filtration Rate 58 mL/min (>60); Est Glom Filt Rate - Afr Amer 70 mL/min (>60); Globulin 3.8 g/dL (2.2-4.2); Glucose 122 mg/dL (74-106); High Density Lipoprotein 46 mg/dL; Potassium 4.1 mmol/L (3.5-5.1); Protein, Total 7.6 g/dL (6.4-8.2); Sodium Level 138 mmol/L (136-145); Thyroid Stim Hormone (TSH) 6.68 uIU/mL (0.358-3.74); Triglycerides 173 mg/dL; Very Low Density Lipoprotein 35 mg/dL (5-40)
[2023-07-11 21:15] LABS: Differential Indicated SCAN CRITERIA MET
[2023-07-11 21:19] LABS: Anisocytosis 1+; Macrocytosis 1+; Platelet Estimate ADEQUATE (ADEQ); Reactive Lymphocyte 2+; Red Cell Morphology N CHROM NORMAL (NORM C&C)
== END | disposition home or self-care (01) ==
PROVIDERS: PCP Nurse Practitioner; Visit Provider Nurse Practitioner
DX: R50.9 Fever, unspecified (principal); I10 Essential (primary) hypertension; E03.9 Hypothyroidism, unspecified; K21.00 Gastro-esophageal reflux disease with esophagitis, without bleeding
CPT/HCPCS: 80053; 80061; 84443; 85025